=== PATIENT | male | born 1950 | race Caucasian/White ===

== ENCOUNTER → 2019-05-03 08:03 | Outpatient (CLI) | payer MEDICARE, OTHER, SELFPAY ==
[2019-04-27 13:36] VITALS: BMI 29.4
--- NOTE | 2019-05-03 08:07 | AAVD_ITS ---
Reason For Study: AAA Aorta Measurements Aorta Doppler Measurements Proximal aorta measures1.76cm x 1.85cm. in cross- Peak systolic flow velocities within the proximal sectional axis. aorta measure 40 cm/sec. Proximal aorta measures1.74cm. in longitudinal Peak systolic flow velocities within the mid aorta axis. measure 52 cm/sec. Mid aorta measures1.56cm x 1.70cm. in cross- Peak systolic flow velocities within the distal sectional axis. aorta measure 74 cm/sec. Mid aorta measures1.56cm. in longitudinal axis. Distal aorta measures1.44cm x 1.44cm. in cross- sectional axis. Distal aorta measures1.48cm. in longitudinal axis. Left Iliac Artery Left iliac artery measures 0.78cm x 0.77 cm. in the cross-sectional axis. Left iliac artery measures 0.78 cm. in the longitudinal axis. Peak systolic velocity in the left iliac artery measures 171 cm/sec. Right Iliac Artery Right iliac artery measures 0.87cm x 0.85 cm. in the cross-sectional axis. Right iliac artery measures 0.86 cm. in the longitudinal axis. Peak systolic velocity in the right iliac artery measures 118 cm/sec. Procedure Aorta IVC Iliac vasculature or bypass grafts 35000. Exam performed in department. Interpretation Summary 1. No aortoiliac stenosis or aneurysm. Ordering Physician: Laci Lewis Referring Physician: Rosendo Hudson Performed By: Maia Alejandra, BRADY, RVT
--- NOTE | 2019-05-03 08:07 | CT_ITS ---
STUDY: CT CHEST WITH CONTRAST REASON FOR EXAM: Male, 69 years old. The patient has a history of thoracic aortic aneurysm. RADIATION DOSAGE (If Supplied By Facility): CTDIvol = ( 13.87 ) mGy, DLP = ( 614.32 ) mGycm TECHNIQUE: Transaxial imaging was performed following intravenous administration of IV Isovue 370 100CC. Multiplanar coronal and sagittal images were reformatted. Individualized dose optimization techniques were used for this CT. COMPARISON: None. FINDINGS: Minimal increased markings at the right lung base suggestive of scarring. There is no demonstrated pleural abnormality. Normal heart and pericardium. Normal mediastinum. Normal hilar regions. Normal enhanced pulmonary arteries. Mild dilatation of the ascending thoracic aorta with a transverse dimension of 4.1 cm. The aortic arch and descending thoracic aorta are unremarkable. There are mild degenerative changes of the thoracic spine. Small hiatal hernia. 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 Electronically Signed: Papo Browning, at 15:38 EST , Service support ,
[2019-05-03 12:31] LABS: CREATININE FINGERSTICK 1.1 mg/dL (0.70-1.30); EGFR FINGERSTICK > 60.0000 mL/min (>60)
== END ==
PROVIDERS: Family Provider Family Medicine; PCP Family Medicine; Referring Provider Internal Medicine Cardiovascular Disease; Visit Provider Internal Medicine Cardiovascular Disease
DX: Z01.812 Encounter for preprocedural laboratory examination (principal); I71.2 Thoracic aortic aneurysm, without rupture; I25.10 Atherosclerotic heart disease of native coronary artery without angina pectoris; I10 Essential (primary) hypertension; Z95.5 Presence of coronary angioplasty implant and graft
CPT/HCPCS: 71260; 93978; Q9967